=== PATIENT | male | born 1990 | race Two or more races ===

== ENCOUNTER 2021-06-06 15:56 | Emergency (ER) | payer BC, OTHER ==
[~2021-06-06] VITALS: Ht 175.3 cm; Wt 113.4 kg
[2021-06-06 17:02] VITALS: BP 142/93
[2021-06-06] MEDS ORDERED: IBUP800T27 PO (18:05)
== END 2021-06-06 18:16 | disposition home or self-care (01) ==
LOC: ER 15:56
DX: S16.1XXA Strain of muscle, fascia and tendon at neck level, initial encounter (principal); V43.52XA Car driver injured in collision with other type car in traffic accident, initial encounter; Y93.89 Activity, other specified; Y92.410 Unspecified street and highway as the place of occurrence of the external cause; Y99.8 Other external cause status
CPT/HCPCS: 72040